=== PATIENT | female | born 1985 | race Caucasian/White ===

== ENCOUNTER 2023-12-22 23:35 | Inpatient (IN) | payer OTHER ==
[2023-12-22 23:53] VITALS: BMI 27.7
[2023-12-23] MEDS ORDERED: Promethazine HCl 25 MG/ML VIAL IM PRN (01:13)
[2023-12-23] MEDS ORDERED: Lidocaine 1% (PF) 30 ML VIAL SC PRN (01:13)
[2023-12-23] MEDS ORDERED: Tranexamic Acid 1,000 MG/10 ML VIAL IVP PRN (01:13)
[2023-12-23] MEDS ORDERED: fentaNYL 50 mcg/mL 1 mL Vial SLOW IVP PRN (01:13)
[2023-12-23] MEDS ORDERED: Ondansetron PF 4 MG/2 ML Vial IVP PRN ×2 (01:13→07:07)
[2023-12-23] MEDS ORDERED: Carboprost 250 MCG/ML AMP IM PRN (01:13)
[2023-12-23] MEDS ORDERED: Methylergonovine 0.2 MG/ML VIAL IM PRN (01:13)
[2023-12-23] MEDS ORDERED: Lactated Ringer's 1,000 ML IV PRN (01:13)
[2023-12-23] MEDS ORDERED: hydrALAZINE 20 MG/ML VIAL SLOW IVP PRN ×2 (01:13→07:07)
[2023-12-23] MEDS ORDERED: Misoprostol 200 MCG TAB PR PRN (01:13)
[2023-12-23] MEDS ORDERED: Diphenoxylate HCl/Atropine Tablet PO PRN ×2 (01:13)
[2023-12-23] MEDS ORDERED: Ibuprofen 800 MG TAB PO PRN (01:13)
[2023-12-23] MEDS ORDERED: HYDROcodone/Acetaminophen 5/325 mg Tablet PO PRN ×4 (01:13→07:07)
[2023-12-23] MEDS ORDERED: Oxytocin 30 units/NS 500 ML 500 ML IV SCH ×2 (01:15→07:07)
[2023-12-23 01:29] LABS: Hematocrit 39.7 % (34.9-44.5); Hemoglobin 14.1 g/dL (12.0-15.5); Mean Corpuscular HGB CONC 35.5 g/dL (32.0-36.0); Mean Corpuscular Hemoglobin 33.5 pg (27.0-33.0); Mean Corpuscular Volume 94.3 fl (81.6-98.3); Mean Platelet Volume 12.7 fl (7.4-10.4); Platelet Count 133 10x3/uL (150-450); RBC Distribution Width 13.2 % (11.5-14.5); Red Blood Cell (RBC) Count 4.21 10x6/uL (3.90-5.03); White Blood Cell (WBC) Count 13.9 10x3/uL (3.5-10.5)
[2023-12-23 01:58] LABS: HBSAg Index 0.16 S/CO (0-0.99); Hep B Surf Ag - L&D Non-Reactive S/CO (NonReactive)
[2023-12-23 01:59] LABS: Syphilis Antibody Nonreactive (Nonreactive); Syphilis Antibody Index 0.03 S/CO (<1.00 Non-Reactive)
[2023-12-23] MEDS ORDERED: Oxytocin 10 UNITS/ML VIAL ONE (06:51)
[2023-12-23] MEDS ORDERED: Misoprostol 200 MCG TAB ONE (06:52)
[2023-12-23] MEDS ORDERED: Benzocaine-Menthol 82.5 ML CAN TOP PRN (07:07)
[2023-12-23] MEDS ORDERED: Lanolin Ointment 7 GM TUBE TOP PRN (07:07)
[2023-12-23] MEDS ORDERED: Boostrix 0.5 ML (Tdap) VIAL (>/=7 yrs of age) IM ONE (07:07)
[2023-12-23] MEDS ORDERED: Bisacodyl 10 MG SUPP PR PRN (07:07)
[2023-12-23] MEDS ORDERED: Misoprostol 200 MCG TAB VAG PRN (07:07)
[2023-12-23] MEDS ORDERED: Milk Of Magnesia 30 ML UDCUP PO PRN (07:07)
[2023-12-23] MEDS: Prenatal Vitamin 1 TAB PO SCH (08:04)
[2023-12-23] MEDS: Docusate 100 MG CAP PO SCH ×2 (08:04→21:27)
[2023-12-23] MEDS: Ferrous Sulfate 325 MG TAB PO SCH ×2 (08:05→12:35)
[2023-12-23] MEDS: Ibuprofen 800 MG TAB PO SCH ×2 (14:08→21:27)
[2023-12-24] MEDS: Ibuprofen 800 MG TAB PO SCH (06:09)
[2023-12-24 08:11] VITALS: BP 132/81; TEMP 97.8
[2023-12-24] MEDS: Ferrous Sulfate 325 MG TAB PO SCH (08:12)
[2023-12-24] MEDS: Docusate 100 MG CAP PO SCH (08:13)
[2023-12-24] MEDS: Prenatal Vitamin 1 TAB PO SCH (08:13)
== END 2023-12-24 10:55 | disposition home or self-care (01) | DRG 807 ==
LOC: CSHLD/OP 23:35 → CSHLD 12-23 00:24 → CSHPP 12-23 08:00
PROVIDERS: ADMIT Obstetrics & Gynecology; ATTEND Obstetrics & Gynecology
PROC: 10E0XZZ Delivery of Products of Conception, External Approach (ICD-10-PCS; principal; 2023-12-23)
DX: O75.89 Other specified complications of labor and delivery (principal); Z37.0 Single live birth; Z3A.39 39 weeks gestation of pregnancy; L94.8 Other specified localized connective tissue disorders
CPT/HCPCS: 85027; 86762; 86780; 86850; 86900; 86901; 87340; 99285; J2405

== ENCOUNTER 2025-08-06 10:26 | Day surgery (SDC) | payer OTHER ==
[2025-08-06 10:48] VITALS: BMI 27.8
== END 2025-08-06 12:39 | disposition home or self-care (01) ==
LOC: CSHLD/OP 10:26
PROVIDERS: ATTEND Obstetrics & Gynecology
DX: O36.8390 Maternal care for abnormalities of the fetal heart rate or rhythm, unspecified trimester, not applicable or unspecified (principal); O09.40 Supervision of pregnancy with grand multiparity, unspecified trimester; O09.529 Supervision of elderly multigravida, unspecified trimester; Z3A.00 Weeks of gestation of pregnancy not specified; Z91.040 Latex allergy status; Z88.2 Allergy status to sulfonamides; Z79.899 Other long term (current) drug therapy
CPT/HCPCS: 99283

== ENCOUNTER 2025-08-31 10:07 | Day surgery (SDC) | payer OTHER ==
[2025-08-31 11:10] LABS: #Basophils 0.06 10x3/uL (0.0-0.2); #Eosinophils 0.30 10x3/uL (0.0-0.5); #Monocytes 0.58 10x3/uL (0.0-1.1); #Neutrophils 7.16 10x3/uL (1.5-8.4); %Basophils 0.6 % (0.0-2.0); %Eosinophils 3.0 % (0.0-6.0); %Lymphocytes 19.1 % (18.0-47.0); %Monocytes 5.8 % (0.0-10.0); %Neutrophils 71.0 % (40.0-75.0); Hematocrit 38.4 % (34.9-44.5); Hemoglobin 13.5 g/dL (12.0-15.5); Mean Corpuscular Hemoglobin 32.9 pg (27.0-33.0); Mean Corpuscular Volume 93.7 fL (81.6-98.3); Platelet Count 147 10x3/uL (150-450); Red Blood Cell (RBC) Count 4.10 10x6/uL (3.90-5.03); White Blood Cell (WBC) Count 10.08 10x3/uL (3.5-10.5)
[2025-08-31] MEDS ORDERED: Mineral Oil ENEMA PR SCH (11:15)
[2025-08-31 11:47] VITALS: BMI 27.3
== END 2025-08-31 13:00 | disposition home or self-care (01) ==
LOC: UNDOADMOB 10:07 → CSHLD 10:07 → CSHLD/OP 10:07 → EDSTATUS 12:00 → CSHLD/OP 13:00 → UNDODISOB 13:00
PROVIDERS: ATTEND Obstetrics & Gynecology
DX: Z34.90 Encounter for supervision of normal pregnancy, unspecified, unspecified trimester (principal); Z3A.00 Weeks of gestation of pregnancy not specified
CPT/HCPCS: 85025; 86850; 86900; 86901; 99285

== ENCOUNTER 2025-09-02 09:25 | Inpatient (IN) | payer OTHER ==
[2025-09-02 10:12] VITALS: BMI 27.7
[2025-09-02] MEDS ORDERED: hydrALAZINE 20 MG/ML VIAL SLOW IVP PRN (10:26)
[2025-09-02] MEDS ORDERED: Lidocaine 1% (PF) 30 ML VIAL SC PRN ×2 (10:26→14:08)
[2025-09-02 11:06] LABS: Hematocrit 38.2 % (34.9-44.5); Hemoglobin 13.7 g/dL (12.0-15.5); Mean Corpuscular Hemoglobin 33.1 pg (27.0-33.0); Mean Corpuscular Volume 92.3 fL (81.6-98.3); Platelet Count 149 10x3/uL (150-450); Red Blood Cell (RBC) Count 4.14 10x6/uL (3.90-5.03); White Blood Cell (WBC) Count 11.66 10x3/uL (3.5-10.5)
[2025-09-02 11:37] LABS: Hep B Surf Ag - L&D Non-Reactive S/CO (NonReactive)
[2025-09-02 11:39] LABS: Syphilis Antibody Index 0.06 S/CO (<1.00 Non-Reactive)
[2025-09-02] MEDS ORDERED: HYDROcodone/Acetaminophen 5/325 mg Tablet PO PRN ×2 (14:08)
[2025-09-02] MEDS ORDERED: Ibuprofen 800 MG TAB PO PRN (14:08)
[2025-09-03] MEDS: Oxytocin 30 units/NS 500 ML 500 ML IV SCH ×2 (03:40→09:14)
[2025-09-03] MEDS: Ondansetron PF 4 MG/2 ML Vial IVP PRN (04:16)
[2025-09-03] MEDS ORDERED: diphenhydrAMINE 50 MG/ML VIAL IVP PRN (04:38)
[2025-09-03] MEDS ORDERED: Acetaminophen 325 MG TAB PO PRN (04:38)
[2025-09-03] MEDS ORDERED: Ondansetron PF 4 MG/2 ML Vial IVP PRN (04:38)
[2025-09-03] MEDS: fentaNYL/Ropivacaine Epidural 100 ML ONE (04:41)
[2025-09-03] MEDS ORDERED: Communication Order-Pharmacy FS SCH (04:45)
[2025-09-03] MEDS ORDERED: fentaNYL 2 mcg/Ropivacaine 0.2% Epidural 100 ML CADD EPIDURAL SCH (04:45)
[2025-09-03] MEDS ORDERED: Boostrix 0.5 ML (Tdap) VIAL (>/=7 yrs of age) IM ONE (11:31)
[2025-09-03] MEDS ORDERED: HYDROcodone/Acetaminophen 5/325 mg Tablet PO PRN ×2 (11:31)
[2025-09-03] MEDS ORDERED: Bisacodyl 10 MG SUPP PR PRN (11:31)
[2025-09-03] MEDS ORDERED: Milk Of Magnesia 30 ML UDCUP PO PRN (11:31)
[2025-09-03] MEDS ORDERED: hydrALAZINE 20 MG/ML VIAL SLOW IVP PRN (11:31)
[2025-09-03] MEDS ORDERED: Benzocaine-Menthol 82.5 ML CAN TOP PRN (11:31)
[2025-09-03] MEDS ORDERED: Oxytocin 30 units/NS 500 ML 500 ML IV SCH (11:31)
[2025-09-03] MEDS: Ferrous Sulfate 325 MG TAB PO SCH (12:54)
[2025-09-03] MEDS: Ibuprofen 800 MG TAB PO SCH (13:13)
[2025-09-04] MEDS: Ibuprofen 800 MG TAB PO SCH (12:03)
[2025-09-04 12:34] VITALS: BP 126/79; TEMP 97.7
== END 2025-09-04 18:10 | disposition home or self-care (01) | DRG 807 ==
LOC: CSHLD 09:25 → CSHPP 09-03 10:30
PROVIDERS: ADMIT Obstetrics & Gynecology; ATTEND Obstetrics & Gynecology
DX: O80 Encounter for full-term uncomplicated delivery (principal); Z37.0 Single live birth; Z3A.37 37 weeks gestation of pregnancy
CPT/HCPCS: 51702; 85027; 86780; 86850; 86900; 86901; 87340; J2590